=== PATIENT | male | born 1995 ===

== ENCOUNTER 2024-03-14 21:13 | Emergency (ER) | payer OTHER ==
[~2024-03-14] VITALS: Ht 175.3 cm; Wt 84.8 kg
[2024-03-14] MEDS ORDERED: TRANEXAMIC ACID IN NACL,ISO-OS 1,000 MG/100 ML PIGGYBACK IV ONE (21:15)
[2024-03-14 21:28] LABS: BASOPHILS 0.8 % (0-2); HEMATOCRIT 43.9 % (35.0-50.0); HEMOGLOBIN 15.1 g/dL (12.0-18.0); LYMPHOCYTES 23.5 % (24-44); MCH 30.5 (27-36); MCHC 34.3 g/dl (30-36); MCV 88.8 fl (81-99); MONOCYTES 7.5 % (0-12); NEUTROPHILS 55.2 % (39-80); PLATELET COUNT 181 K/uL (140-440); RBC 4.95 M/ul (4.3-5.7); RDW 13.3 (10.5-15.0)
[2024-03-14] MEDS ORDERED: DIPHTH,PERTUSS(ACELL),TET VAC 0.5 ML SYRINGE IM ONE (21:30)
[2024-03-14 21:49] LABS: ALBUMIN 4.1 g/dL (3.4-5.0); ALBUMIN/GLOBULIN RATIO 1.14 (1.1-2.4); ALCOHOL, MEDICAL <3 ng/dL (<3); ALKALINE PHOSPHATASE 79 U/L (46-116); ALT (SGPT) 25 U/L (14-59); ANION GAP 12.8 (7-21); AST (SGOT) 24 U/L (15-37); BILIRUBIN, TOTAL 0.3 ng/dL (0.2-1.0); BUN/CREATININE RATIO 14.96 (6.0-28.6); CALCIUM 8.7 mg/dL (8.5-10.1); CARBON DIOXIDE 28 mmol/L (21-32); CHLORIDE 102 mmol/L (98-107); CREATININE, SERUM 1.27 mg/dL (0.70-1.30); GLOMERULAR FILTRATION RATE,EST 79 mL/min (>60); POTASSIUM 3.8 mmol/L (3.5-5.1); PROTEIN, TOTAL 7.7 g/dL (6.4-8.2); UREA NITROGEN 19 mg/dL (7-18)
[2024-03-14 22:04] LABS: ABO B; ANTIBODY SCREEN NEGATIVE; RH POSITIVE
[2024-03-14] MEDS ORDERED: fentaNYL citrate 100 MCG/2 ML VIAL IV ONE (23:30)
[2024-03-15] MEDS ORDERED: CEFAZOLIN SODIUM 2 GM/20 ML SYR IV ONE (00:30)
[2024-03-15] MEDS ORDERED: LACTATED RINGER'S 1,000 ML IV SCH (01:00)
[2024-03-15] MEDS ORDERED: FAMOTIDINE 20 MG/ 2 ML VIAL IV ONE (01:00)
[2024-03-15] MEDS ORDERED: ondansetron HCL 4 MG/2 ML VIAL IV ONE (01:00)
[2024-03-15] MEDS ORDERED: AMOX TR-K CLV1 EAC1 PO (04:13)
[2024-03-15 04:56] LABS: BILIRUBIN, URINE NEGATIVE (negative); BLOOD/HGB, URINE NEGATIVE (Negative); KETONE, URINE NEGATIVE (Negative); LEUK ESTERASE, URINE NEGATIVE (negative); NITRITE, URINE NEGATIVE (negative)
[2024-03-15 05:01] LABS: AMPHETAMINES, URINE NEGATIVE (NEGATIVE); BARBITURATES, URINE NEGATIVE (NEGATIVE); BENZODIAZEPINE, URINE NEGATIVE (NEGATIVE); BUPRENORPHINE, URINE POSITIVE (NEGATIVE); CANNABINOID, URINE NEGATIVE (NEGATIVE); COCAINE, URINE NEGATIVE (NEGATIVE); ECSTASY, URINE NEGATIVE (NEGATIVE); FENTANYL, URINE POSITIVE (NEGATIVE); METHADONE, URINE NEGATIVE (NEGATIVE); OPIATES, URINE NEGATIVE (NEGATIVE); OXYCODONE, URINE NEGATIVE (NEGATIVE); PHENCYCLIDINE, URINE NEGATIVE (NEGATIVE)
[2024-03-15] MEDS ORDERED: buprenorphine HCL 8 MG TAB.SUBL SL ONE (06:45)
[2024-03-15 08:25] VITALS: BP 127/72
== END 2024-03-15 08:25 | disposition home or self-care (01) ==
LOC: ED 21:13
PROVIDERS: Internal Medicine
DX: S01.511A Laceration without foreign body of lip, initial encounter (principal); X78.0XXA Intentional self-harm by sharp glass, initial encounter; Y92.149 Unspecified place in prison as the place of occurrence of the external cause; Z23 Encounter for immunization
CPT/HCPCS: 12052; 36415; 70450; 70486; 71045; 72125; 72141; 80053; 80307; 81003; 85025; 86850; 86900; 86901; 90471; 90715; 99284-25; G0480; J0690; J2405; J3010; J7121